=== PATIENT | male | born 1960 | race Caucasian/White ===

== ENCOUNTER 2023-01-09 14:00 | Emergency (ER) | payer OTHER, SELFPAY ==
[2023-01-09] VITALS (50 sets, daily range): BP systolic 108–144; BP diastolic 79–108; PULSE 77–126; RESP 22; TEMP 36.4; O2SAT 90–99
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
[2023-01-09 14:30] LABS: Basophils Absolute Auto 0.04 K/uL (0.00-0.30); Basophils Percent Auto 0.5 % (0.0-3.0); Eosinophils Absolute Auto 0.15 K/uL (0.00-0.50); Eosinophils Percent Auto 1.7 % (0.0-7.0); Hematocrit 46.6 % (37.0-53.0); Hemoglobin* 15.5 gm/dL (13.5-17.5); Immature Granulocytes Abs Auto 0.01 K/uL (0.00-0.30); Immature Granulocytes Pct Auto 0.1 %; Lymphocytes Percent Auto 19.7 % (20-44); Mean Corpuscular HGB Conc 33 gm/dL (32-36); Mean Corpuscular Hemoglobin 31 pg (26-34); Mean Corpuscular Volume 94 fL (80-100); Monocytes Percent Auto 8.9 % (0.0-11.0); Neutrophils Percent Auto 69.1 % (42.0-72.0); Platelet Count* 216 K/uL (140-440); RDW Coefficient of Variation % 12.2 % (11.5-15.5); Red Blood Count 4.94 m/uL (4.30-5.90); White Blood Count* 8.68 K/uL (4.50-11.00)
--- NOTE | 2023-01-09 14:32 | RESP.RT ---
Trauma Team Call; Respiratory rate 20/minute, breathing regular/easy, On room air SaO2 95%, BBS clear/equal fair air movement, no wheeze noted.
[2023-01-09] MEDS: 0.9 % SODIUM CHLORIDE 1000 ml 1,000 ML IV (14:39)
[2023-01-09 14:52] LABS: Slide Review Reflex No
[2023-01-09 14:54] LABS: Chloride* 100 mmol/L (96-114); Potassium* 3.6 mmol/L (3.6-5.1); Sodium* 137 mmol/L (135-149)
[2023-01-09 14:57] LABS: Blood Urea Nitrogen* 15 mg/dL (7-30); Carbon Dioxide* 30 mmol/L (20-32); Creatinine* 1.1 mg/dL (0.5-1.5); Estimated Glomerular Filt Rate 75 ml/min
[2023-01-09 14:58] LABS: Calcium* 9.1 mg/dL (8.4-10.6); Glucose* 192 mg/dL (60-115)
[2023-01-09] MEDS: METOPROLOL TARTRATE 25 MG TABLET PO (16:20)
[2023-01-09] MEDS: IBUPROFEN 400 MG TABLET 800 MG PO (16:58)
[2023-01-10 05:26] LABS: NT Pro B Type NatriureticPept* 929 pg/mL
== END 2023-01-09 17:56 | disposition home or self-care (01) ==
PROVIDERS: Emergency Provider Family Medicine
DX: S16.1XXA Strain of muscle, fascia and tendon at neck level, initial encounter (principal); V49.3XXA Car occupant (driver) (passenger) injured in unspecified nontraffic accident, initial encounter; I48.20 Chronic atrial fibrillation, unspecified
CPT/HCPCS: 36415; 72125; 80048; 83735; 83880; 84443; 85025; 93005; 93225; 93226; 94761; 99284; 99291; A9270; J7030

== ENCOUNTER 2023-02-04 10:31 | Outpatient (CLI) | payer OTHER, SELFPAY | END 2023-02-04 10:32 | disposition home or self-care (01) | PROVIDERS: PCP Family Medicine; Visit Provider Family Medicine | DX: I48.91 Unspecified atrial fibrillation (principal); I51.7 Cardiomegaly | CPT/HCPCS: 93306 ==

== ENCOUNTER 2024-05-11 21:53 | Emergency (ER) | payer MEDICARE, SELFPAY ==
[2024-05-11 22:00] VITALS: BP 137/87; PULSE 97; RESP 14; O2SAT 98
[2024-05-11 22:03] VITALS: BP 160/102; PULSE 116; RESP 20; TEMP 36.8; O2SAT 95; BMI 36.8
[2024-05-11 22:47] LABS: PCR FLU A Negative PCR FLU A (Negative); PCR FLU B Negative PCR FLU B (Negative); PCR RSV Negative PCR RSV (Negative); SARS PCR* Negative SARS-CoV-2 (Negative)
--- NOTE | 2024-05-11 22:49 | ED.GENADULT ---
HPI - General Adult General Chief complaint: Shortness of Breath/Dyspnea Stated complaint: Short of breath Time Seen by Provider: 05/11/24 21:56 History of Present Illness HPI narrative: cold symptoms for a few days, states hard to breath deep breath tonight. worked a full day then got worse tonight. pt has wheeze. albuterol at home. denies any pain or CP. home oximeter reads 95%. pt states he has had lung problems since dx covid last year. states he just hasnt been the same since. 63-year-old man presenting to the emergency department with increased shortness of breath. Feels like in particular is hard to get a deep breath. Did have some cold symptoms over the last few days and worsened particularly today. Have an albuterol inhaler available. Just not turning the corner. Was diagnosed with COVID last year and just has been having lung congestion and wheeze and bouts of dyspnea since. Has not had fever. Remote smoking history Apparently does have chronically irregular heartbeat but has declined treatment for it. During visit apparent that this is atrial fibrillation. January of 2023 had an echocardiogram showing mild LV enlargement with normal wall thickness and an estimated EF of 45-50%. No significant valvular disease noted. Mildly enlarged left atrium as well. Limitations on study technically. Related Data Previous Rx's ?Medication ?Instructions ?Recorded fluticasone propionate 110 1 inh inhalation BID #12 grams 05/19/24 mcg/actuation HFA aerosol inhaler fluticasone propionate 110 1 puff inhalation BID #12 grams 05/19/24 mcg/actuation HFA aerosol inhaler ipratropium 0.5 mg-albuterol 3 mg 3 ml inhalation TID PRN For 05/19/24 (2.5 mg base)/3 mL nebulization cough/wheeze #90 mL soln ipratropium 0.5 mg-albuterol 3 mg 3 ml inhalation TID PRN cough, 05/19/24 (2.5 mg base)/3 mL nebulization wheeze, shortness of breath #90 mL soln prednisone 20 mg tablet See Rx Instructions .Route 05/19/24 .COMPLEX 10 days #18 tabs prednisone 20 mg tablet See Rx Instructions .Route 05/19/24 .COMPLEX 10 days #18 tabs Allergies Allergy/AdvReac Type Severity Reaction Status Date / Time sulfamethoxazole (From Allergy Verified 01/09/23 14:43 ) trimethoprim (From Septra) Allergy Verified 01/09/23 14:43 Review of Systems Status of ROS: Reports: 6 or more systems reviewed and unremarkable except as noted in History and below [facility] Social History Smoking Status: Never smoker How often do you have a drink containing alcohol: never AUDIT-C Alcohol total score: 0 Non-prescribed substance use: denies use service: No Exam Narrative: Exam Narrative: Mildly labored in his breathing. Does sound congested in the nasopharynx. Lungs with diffuse crepitus and trace expiratory wheeze. No facial swelling erythema or tenderness. Well-perfused peripherally. Heart in irregularly irregular rhythm elevated rate. Const: Vital Signs, click to edit/add: Vital Signs - 24 hr 05/11/24 22:00 05/11/24 22:03 05/11/24 23:00 Temperature 98.2 F Pulse Rate [Pulse Oximeter] 116 H 103 H Pulse Rate [Right Radial] 97 Respiratory Rate 14 20 23 Blood Pressure [Ri t Upper Arm] 137/87 160/102 H 118/66 Pulse Oximetry 98 95 93 Oxygen Delivery Me thod Room Air Room Air Room Air Documenting provider has reviewed patient's vital signs: yes Course Vital Signs Vital signs: Initial Vital Signs Pulse Rate 97 05/11/24 22:00 Pulse Rhythm Regular 05/11/24 22:00 Respiratory Rate 14 05/11/24 22:00 Respiratory Effort Normal, Spontaneous, Non-Labored 05/11/24 22:00 Respiratory Depth Normal 05/11/24 22:00 Blood Pressure 137/87 05/11/24 22:00 Blood Pressure Mean 103 05/11/24 22:00 Pulse Oximetry 98 05/11/24 22:00 Oxygen Delivery Method Room Air 05/11/24 22:00 Vital Signs Pulse Rate 97 05/11/24 22:00 Respiratory Rate 14 05/11/24 22:00 Blood Pressure 137/87 05/11/24 22:00 Pulse Oximetry 98 05/11/24 22:00 Oxygen Delivery Method Room Air 05/11/24 22:00 Temperature 98.2 F 05/11/24 22:03 Pulse Rate 83 05/12/24 01:16 Respiratory Rate 23 05/12/24 01:16 Blood Pressure 122/83 05/12/24 01:16 Pulse Oximetry 93 05/11/24 23:00 Oxygen Delivery Method Room Air 05/11/24 23:00 Medications Administered Medications: Discontinued Medications Generic Name Dose Route Start Last Admin Trade Name Kelly PRN Reason Stop Dose Admin Albuterol 2.5 mg 05/12/24 00:26 05/12/24 00:27 Albuterol Sulfate 2.5 Mg/3 Ml Vial.Neb NEB 05/12/24 00:27 2.5 mg ONCE ONE Administration Albuterol/Ipratropium 1 neb 05/11/24 23:03 05/11/24 23:19 Iprat-Albut 0.5-2.5 Mg/3 Ml Neb 05/11/24 23:04 1 neb ONCE ONE Administration Prednisone 60 mg 05/11/24 23:03 05/11/24 23:19 Prednisone 20 Mg Tablet PO 05/11/24 23:04 60 mg ONCE ONE Administration Medical Decision Making MDM Narrative Medical decision making narrative: 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 Think can help with some of his symptoms with nebulization treatment. Plan on giving a DuoNeb initially. Would likely benefit from prednisone as well. Would check for pneumonia with duration of symptoms as well as screening for new COVID, influenza or RSV infection. Confirms history of atrial fibrillation. Would have concerns then of CHF exacerbation as well, though I think this is less likely the issue. Chest x-ray interpreted independently by me shows some mild cardiomegaly. I do not see infiltrate. Radiology over-read below TECHNIQUE: Chest radiograph 2 views COMPARISON: None FINDINGS: Mediastinum: The mediastinum is normal in appearance. Mild cardiomegaly is noted. Lung: Both lungs are unremarkable in appearance. The right lateral costophrenic sulcus is excluded on the frontal view. Small right and trace left pleural effusion seen. No pneumothorax is identified. Bone and Soft tissue: Unremarkable for age. IMPRESSIONS: 1. Mild cardiomegaly is noted. 2. Small right and trace left pleural effusion seen. Overall improved with initial DuoNeb. Is further given 60 mg of prednisone. Still congested given 1 more albuterol nebulization. Sats a little more depressed but overall feels better Discussed at length concerns related to atrial fibrillation and lack of anticoagulation. 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 Would prescribe a course of prednisone in the short term. He does seem to have some environmental allergies and this might be triggering some of these pulmonary exacerbations as well. See patient discharge plan for further discussion I do think it is important that you follow-up with your primary care provider or pulmonology and get some formal lung function tests and consider an inhaled controller medication to limit damage or at least further episodes in your lungs. You could try taking a nonsedating second-generation antihistamine like loratadine or fexofenadine daily and see if this might limit some recurrent episodes. Am prescribing prednisone from [facility]. Would use your albuterol with a spacer if possible. Pharmacy might have these. Also concerned about your atrial fibrillation, in particular because this is a stroke risk. Extra risk if you are going in and out of atrial fibrillation. I would also discuss treatment for this on follow-up. Medical Records Medical records reviewed: Yes I reviewed the patient's medical records Lab Data Lab results reviewed: Yes I reviewed the patient's lab results Labs: Lab Results 05/11/24 Range/Units 22:00 SARS-CoV-2 (PCR) Negative SARS-CoV-2 (Negative) Influenza Type A (PCR) Negative PCR FLU A (Negative) Influenza Type B (PCR) Negative PCR FLU B (Negative) RSV (PCR) Negative PCR RSV (Negative) Discharge Plan Discharge Clinical Impression: Dyspnea, Chest congestion, Atrial fibrillation Patient Disposition: Home w/ Parent or Adult Condition: Improved Additional Instructions: I do think it is important that you follow-up with your primary care provider or pulmonology and get some formal lung function tests and consider an inhaled controller medication to limit damage or at least further episodes in your lungs. You could try taking a nonsedating second-generation antihistamine like loratadine or fexofenadine daily and see if this might limit some recurrent episodes. Am prescribing prednisone from [facility]. Would use your albuterol with a spacer if possible. Pharmacy might have these. Also concerned about your atrial fibrillation, in particular because this is a stroke risk. Extra risk if you are going in and out of atrial fibrillation. I would also discuss treatment for this on follow-up. Prescriptions: No Action fluticasone propionate 110 mcg/actuation HFA aerosol inhaler 1 puff inhalation BID Qty: 12 0RF Rx Instructions: administer with spacer ipratropium-albuterol 0.5 mg-3 mg(2.5 mg base)/3 mL solution for nebulization 3 ml inhalation TID PRN (Reason: For cough/wheeze) Qty: 90 0RF prednisone 20 mg tablet See Rx Instructions .ROUTE .COMPLEX 10 Days Qty: 18 0RF Rx Instructions: take 60mg po daily for 2 days; 40mg daily for 4 days; 20mg daily for 4 days fluticasone propionate 110 mcg/actuation HFA aerosol inhaler 1 inh inhalation BID Qty: 12 0RF Rx Instructions: Rinse mouth after inhalation ipratropium-albuterol 0.5 mg-3 mg(2.5 mg base)/3 mL solution for nebulization 3 ml inhalation TID PRN (Reason: cough, wheeze, shortness of breath) Qty: 90 0RF prednisone 20 mg tablet See Rx Instructions .ROUTE .COMPLEX 10 Days Qty: 18 0RF Rx Instructions: Take 60 mg p.o. daily days 1 through 2; 40 mg daily days 3 through 6; 20 mg daily days 7 through 10 Follow Up/Referrals: Melvin Sheikh MD [Primary Care Provider] - Stand Alone Forms: [employer] Info Instructions
[2024-05-11 23:00] VITALS: BP 118/66; PULSE 103; RESP 23; O2SAT 93
--- NOTE | 2024-05-11 23:03 | CRLHL7_ITS ---
For Patients: As a result of the Cures Act, medical imaging exams and procedure reports are released immediately into your electronic medical record. You may view this report before your referring provider. If you have questions, please contact your health care provider. INDICATION: Diffuse congestion and wheeze TECHNIQUE: Chest radiograph 2 views COMPARISON: None FINDINGS: Mediastinum: The mediastinum is normal in appearance. Mild cardiomegaly is noted. Lung: Both lungs are unremarkable in appearance. The right lateral costophrenic sulcus is excluded on the frontal view. Small right and trace left pleural effusion seen. No pneumothorax is identified. Bone and Soft tissue: Unremarkable for age. IMPRESSIONS: 1. Mild cardiomegaly is noted. 2. Small right and trace left pleural effusion seen. Dictated by Elvis Farrell MD @ 05/11/2024 11:35:26 PM Dictated by: Elvis Farrell MD @ 05/11/2024 23:35:30 (Electronically Signed)
[2024-05-11] MEDS: IPRAT-ALBUT 0.5-2.5 MG/3 ML NEB 1 NEB IH (23:19)
[2024-05-11] MEDS: predniSONE 20 MG TABLET 60 MG PO (23:19)
[2024-05-12] MEDS: ALBUTEROL SULFATE 2.5 MG/3 ML VIAL.NEB NEB (00:27)
[2024-05-12 01:16] VITALS: BP 122/83; PULSE 83; RESP 23
== END 2024-05-12 01:17 | disposition home or self-care (01) ==
PROVIDERS: Emergency Provider Family Medicine; PCP Family Medicine
DX: R06.00 Dyspnea, unspecified (principal); R09.89 Other specified symptoms and signs involving the circulatory and respiratory systems; I48.91 Unspecified atrial fibrillation
CPT/HCPCS: 71046; 87631; 94640; 99284; J7512

== ENCOUNTER 2024-05-19 11:35 | Emergency (ER) | payer MEDICARE, SELFPAY ==
[2024-05-19 11:41] VITALS: BP 143/89; PULSE 102; RESP 18; TEMP 36.8; O2SAT 96; BMI 36.8
--- NOTE | 2024-05-19 11:52 | ED.GENADULT ---
HPI - General Adult General Chief complaint: Shortness of Breath/Dyspnea Stated complaint: shortness of breath, pressure in chest Time Seen by Provider: 05/19/24 11:38 History of Present Illness HPI narrative: Patient here with worsening of chronic cough. Reports was made better with short burst of prednisone. Patient is now finished with prednisone and cough is worsening again . Patient speaking in full sentences but states he is congestion and has chest pressure 63-year-old man presenting to the emergency depart with concern of shortness of breath and pressure in his chest. Was seen in this department about 8 days ago and received a course of prednisone. He did get better but now the cough has returned. Says it got worse again immediately after stopping the prednisone. Underlying history also of atrial fibrillation. Has reported problems with his lungs since having COVID last year with intermittent wheeze and cough. Cold seems to trigger worsening of this congestion in his chest. He early this morning suddenly felt that pressure and difficulty breathing with which he is familiar. Heart rate was not elevated at the time. [place] similar again later this morning and improved symptoms with what sounds like a DuoNeb from his father in law. Now living in in laws home where there has been and continues to be smoking exposure. Wondering if he might be triggered by this. May have gotten worse since moving into this home. Reviewed again results of January 2023 echocardiogram showing mild LV enlargement normal wall thickness estimated EF 45-50%. No significant valvular disease. Related Data Previous Rx's ?Medication ?Instructions ?Recorded fluticasone propionate 110 1 inh inhalation BID #12 grams 05/19/24 mcg/actuation HFA aerosol inhaler fluticasone propionate 110 1 puff inhalation BID #12 grams 05/19/24 mcg/actuation HFA aerosol inhaler ipratropium 0.5 mg-albuterol 3 mg 3 ml inhalation TID PRN For 05/19/24 (2.5 mg base)/3 mL nebulization cough/wheeze #90 mL soln ipratropium 0.5 mg-albuterol 3 mg 3 ml inhalation TID PRN cough, 05/19/24 (2.5 mg base)/3 mL nebulization wheeze, shortness of breath #90 mL soln prednisone 20 mg tablet See Rx Instructions .Route 05/19/24 .COMPLEX 10 days #18 tabs prednisone 20 mg tablet See Rx Instructions .Route 05/19/24 .COMPLEX 10 days #18 tabs Allergies Allergy/AdvReac Type Severity Reaction Status Date / Time sulfamethoxazole (From Allergy Verified 01/09/23 14:43 ) trimethoprim (From ) Allergy Verified 01/09/23 14:43 Review of Systems Status of ROS: Reports: 6 or more systems reviewed and unremarkable except as noted in History and [facility] Smoking Status: Never smoker How often do you have a drink containing alcohol: never AUDIT-C Alcohol total score: 0 Non-prescribed substance use: denies use service: No Exam Narrative: Exam Narrative: Lungs with diffuse crepitus, congestion with inspiratory and particularly expiratory wheeze throughout. Not terribly tachypneic but moderately labored. Extremities are without edema. Is well-perfused. Speaking in full sentences. No supraclavicular crepitus. Heart in elevated rate and in irregular rhythm. Const: Vital Signs, click to edit/add: Vital Signs - 24 hr 05/19/24 11:41 Temperature 98.3 F Pulse Rate [Pulse Oximeter] 102 H Respiratory Rate 18 Blood Pressure [Ri ght Upper Arm] 143/89 H Pulse Oximetry 96 Oxygen Delivery Me thod Room Air Documenting provider has reviewed patient's vital signs: yes Course Vital Signs Vital signs: Initial Vital Signs Temperature 98.3 F 05/19/24 11:41 Temperature Source Temporal Artery Scan 05/19/24 11:41 Pulse Rate 102 H 05/19/24 11:41 Respiratory Rate 18 05/19/24 11:41 Blood Pressure 143/89 H 05/19/24 11:41 Blood Pressure Mean 107 H 05/19/24 11:41 Pulse Oximetry 96 05/19/24 11:41 Oxygen Delivery Method Room Air 05/19/24 11:41 Vital Signs Temperature 98.3 F 05/19/24 11:41 Pulse Rate 102 H 05/19/24 11:41 Respiratory Rate 18 05/19/24 11:41 Blood Pressure 143/89 H 05/19/24 11:41 Pulse Oximetry 96 05/19/24 11:41 Oxygen Delivery Method Room Air 05/19/24 11:41 Temperature 98.3 F 05/19/24 11:41 Pulse Rate 82 05/19/24 12:53 Respiratory Rate 18 05/19/24 11:41 Blood Pressure 143/89 H 05/19/24 11:41 Pulse Oximetry 99 05/19/24 12:53 Oxygen Delivery Method Room Air 05/19/24 12:53 Medications Administered Medications: Discontinued Medications Generic Name Dose Route Start Last Admin Trade Name Kelly PRN Reason Stop Dose Admin Albuterol 2.5 mg 05/19/24 12:42 05/19/24 12:48 Albuterol Sulfate 2.5 Mg/3 Ml Vial.Neb NEB 05/19/24 12:43 2.5 mg ONCE ONE Administration Medical Decision Making MDM Narrative Medical decision making narrative: Differential does include run of AFib with RVR or other arrhythmia, mucous plugging, panic attack/anxiety, reactive airway exacerbation, chronic fibrotic changes, pulmonary embolus Since he just had a DuoNeb, giving another albuterol did feel this helped a little bit. Less wheeze on reauscultation. Suspect that remains in relatively rate-controlled atrial fibrillation as chronically. Need to encourage again follow-up for illness. Has also been reluctant to anticoagulate atrial fibrillation. Chest x-ray independently reviewed by me looks similar to prior. I do not see infiltrate. Mild cardiomegaly. Radiology over-read below TECHNIQUE: Chest radiograph 2 views on 3 films COMPARISON: 05/11/2024 FINDINGS: Mediastinum: The mediastinum is normal in appearance. Mild, stable cardiomegaly is noted. Lung: Mild wispy atelectasis is seen in the left lung base with suspected trace left pleural effusion. No pneumothorax is identified. Bone and Soft tissue: Unremarkable for age. IMPRESSIONS: 1. Mild wispy atelectasis is seen in the left lung base with suspected trace left pleural effusion. 2. Mild, stable cardiomegaly is noted. Suspected atelectasis as noted would not be surprising given deep inspiratory effort tends to cause cough or he feels a little restricted. Vitals are stable and generally well for discharge from the emergency department. Considering the home you live in, at a minimum I think you should be taking your Zyrtec daily for a month or 2 and see if that might be helpful. Prescribing a course of prednisone again in a little longer course. Prescribing a quality spacer to use with this new steroid inhaler as well as your albuterol. Over the next 3 days can take DuoNebs 3 times daily. Can use your [id number]'s nebulizer with this fresh tubing from the ER. Please message your primary care provider requesting to be seen by pulmonology. Medical Records Medical records reviewed: Yes I reviewed the patient's medical records Discharge Plan Discharge Clinical Impression: Dyspnea, Chest congestion, Wheeze Patient Disposition: Home w/ Parent or Adult Condition: Improved Additional Instructions: Considering the home you live in, at a minimum I think you should be taking your Zyrtec daily for a month or 2 and see if that might be helpful. Prescribing a course of prednisone again in a little longer course. Prescribing a quality spacer to use with this new steroid inhaler as well as your albuterol. Over the next 3 days can take DuoNebs 3 times daily. Can use your [id number]'s nebulizer with this fresh tubing from the ER. Please message your primary care provider requesting to be seen by pulmonology. Prescriptions: New fluticasone propionate 110 mcg/actuation HFA aerosol inhaler 1 puff inhalation BID Qty: 12 0RF Rx Instructions: administer with spacer ipratropium-albuterol 0.5 mg-3 mg(2.5 mg base)/3 mL solution for nebulization 3 ml inhalation TID PRN (Reason: For cough/wheeze) Qty: 90 0RF prednisone 20 mg tablet See Rx Instructions .ROUTE .COMPLEX 10 Days Qty: 18 0RF Rx Instructions: take 60mg po daily for 2 days; 40mg daily for 4 days; 20mg daily for 4 days fluticasone propionate 110 mcg/actuation HFA aerosol inhaler 1 inh inhalation BID Qty: 12 0RF Rx Instructions: Rinse mouth after inhalation ipratropium-albuterol 0.5 mg-3 mg(2.5 mg base)/3 mL solution for nebulization 3 ml inhalation TID PRN (Reason: cough, wheeze, shortness of breath) Qty: 90 0RF prednisone 20 mg tablet See Rx Instructions .ROUTE .COMPLEX 10 Days Qty: 18 0RF Rx Instructions: Take 60 mg p.o. daily days 1 through 2; 40 mg daily days 3 through 6; 20 mg daily days 7 through 10 Follow Up/Referrals: Melvin Sheikh MD [Primary Care Provider] - Stand Alone Forms: [facility] Info Instructions
--- NOTE | 2024-05-19 12:14 | CRLHL7_ITS ---
For Patients: As a result of the Cures Act, medical imaging exams and procedure reports are released immediately into your electronic medical record. You may view this report before your referring provider. If you have questions, please contact your health care provider. INDICATION: Pneumonia TECHNIQUE: Chest radiograph 2 views on 3 films COMPARISON: 05/11/2024 FINDINGS: Mediastinum: The mediastinum is normal in appearance. Mild, stable cardiomegaly is noted. Lung: Mild wispy atelectasis is seen in the left lung base with suspected trace left pleural effusion. No pneumothorax is identified. Bone and Soft tissue: Unremarkable for age. IMPRESSIONS: 1. Mild wispy atelectasis is seen in the left lung base with suspected trace left pleural effusion. 2. Mild, stable cardiomegaly is noted. Dictated by Elvis Farrell MD @ 05/19/2024 1:58:18 PM Dictated by: Elvis Farrell MD @ 05/19/2024 13:58:22 (Electronically Signed)
[2024-05-19] MEDS: ALBUTEROL SULFATE 2.5 MG/3 ML VIAL.NEB NEB (12:48)
[2024-05-19 12:53] VITALS: PULSE 82; O2SAT 99
== END 2024-05-19 14:00 | disposition home or self-care (01) ==
PROVIDERS: Emergency Provider Family Medicine; PCP Family Medicine
DX: R06.00 Dyspnea, unspecified (principal); R09.89 Other specified symptoms and signs involving the circulatory and respiratory systems; R06.2 Wheezing
CPT/HCPCS: 71046; 94640; 99283; 99284

== ENCOUNTER 2024-10-05 06:59 | Outpatient (CLI) | payer MEDICARE, SELFPAY ==
--- NOTE | 2024-10-05 08:30 | P.ANES_ITS ---
Anesthesia Charges Start Date/Time Anesthesia Start Date: 10/05/24 Anesthesia Start Time: 08:05 Stop Date/Time Anesthesia Stop Date: 10/05/24 Anesthesia Stop Time: 08:30 Coding CPT Codes CPT Codes: GABINO HICKS INTST NDSC NOS - 56061 ([id number]) P2 - PATIENT W/MILD SYST DISEASE, QX - REEL CUTTER SVC W/ MD MED DIRECTION, QK - ELECTRIC SEALING MACHINE OPERATOR 2-4 CNCRNT ANES PROC
--- NOTE | 2024-10-05 08:30 | W.ANESCHARGE ---
Anesthesia Charges Start Date/Time Anesthesia Start Date: 10/05/24 Anesthesia Start Time: 08:05 Stop Date/Time Anesthesia Stop Date: 10/05/24 Anesthesia Stop Time: 08:30 Coding CPT Codes CPT Codes: GABINO HICKS INTST NDSC NOS - 49891 ([id number]) P2 - PATIENT W/MILD SYST DISEASE, QX - PEDIATRIC NURSE SVC W/ MD MED DIRECTION, QK - MELTER ASSISTANT 2-4 CNCRNT ANES PROC
--- NOTE | 2024-10-05 08:54 | P.ANES_ITS ---
Anesthesia Charges Start Date/Time Anesthesia Start Date: 10/05/24 Anesthesia Start Time: 08:05 Stop Date/Time Anesthesia Stop Date: 10/05/24 Anesthesia Stop Time: 08:30 Coding CPT Codes CPT Codes: GABINO LWR INTST NDSC NOS - 57141 ([id number]) P2 - PATIENT W/MILD SYST DISEASE, QK - STUCCO MASON 2-4 CNCRNT ANES PROC, QX - HOME BASED ASSISTANT SVC W/ MD MED DIRECTION
--- NOTE | 2024-10-05 08:54 | W.ANESCHARGE ---
Anesthesia Charges Start Date/Time Anesthesia Start Date: 10/05/24 Anesthesia Start Time: 08:05 Stop Date/Time Anesthesia Stop Date: 10/05/24 Anesthesia Stop Time: 08:30 Coding CPT Codes CPT Codes: GABINO LWR INTST NDSC NOS - 66403 ([id number]) P2 - PATIENT W/MILD SYST DISEASE, QK - BREAK OUT MAN 2-4 CNCRNT ANES PROC, QX - DIRECTOR MEDICAL ECONOMICS SVC W/ MD MED DIRECTION
== END 2024-10-05 07:00 | disposition home or self-care (01) ==
LOC: OP CLINIC 07:01
PROVIDERS: PCP Family Medicine; Visit Provider Internal Medicine Gastroenterology
DX: Z12.11 Encounter for screening for malignant neoplasm of colon (principal); D12.3 Benign neoplasm of transverse colon; Z86.0101 Personal history of adenomatous and serrated colon polyps
CPT/HCPCS: 00811; 45380; 88305; J2704